=== PATIENT | male | born 2000 | race Caucasian/White ===

== ENCOUNTER 2020-02-04 11:06 | Emergency (ER) | payer MEDICAID ==
[~2020-02-04] VITALS: Ht 157.5 cm; Wt 97.5 kg
[2020-02-04 11:21] VITALS: BP_SYST 133
[2020-02-04] MEDS ORDERED: PENICILLIN G BENZATHINE 1.2 MMU/2 ML SYR IM ONE (11:45)
[2020-02-04] MEDS ORDERED: KETOROLAC TROMETHAMINE 60 MG/2 ML VIAL IM ONE (11:45)
[2020-02-04 12:55] VITALS: BP_SYST 133
== END 2020-02-04 12:55 | disposition home or self-care (01) ==
LOC: SED 11:06
DX: J02.0 Streptococcal pharyngitis (principal)
CPT/HCPCS: 96372; 99284; J0561; J1885

== ENCOUNTER 2020-02-28 09:25 | Emergency (ER) | payer MEDICAID ==
[~2020-02-28] VITALS: Ht 160 cm; Wt 90.7 kg
[2020-02-28 09:47] VITALS: BP_SYST 128
--- NOTE | 2020-02-28 09:53 | NUR ---
sent to no beds
--- NOTE | 2020-02-28 15:43 | NUR ---
called for bed placement. patient not in waiting room.
--- NOTE | 2020-02-28 15:45 | NUR ---
called for bed placement. patient not in waiting room.
--- NOTE | 2020-02-28 15:47 | NUR ---
called for bed placement. patient not in waiting room. patient left without being seen.
== END 2020-02-28 15:47 | disposition left against medical advice (07) ==
LOC: SED 09:25
DX: F11.10 Opioid abuse, uncomplicated (principal); Z53.21 Procedure and treatment not carried out due to patient leaving prior to being seen by health care provider

== ENCOUNTER 2020-03-27 00:57 | Emergency (ER) | payer MEDICAID ==
[~2020-03-27] VITALS: Ht 162.6 cm; Wt 81.6 kg
[2020-03-27 01:05] VITALS: BP_SYST 133
[2020-03-27 01:15] VITALS: BP_SYST 133
== END 2020-03-27 01:15 | disposition home or self-care (01) ==
LOC: SED 00:57
DX: F11.10 Opioid abuse, uncomplicated (principal)
CPT/HCPCS: 99281